=== PATIENT | male | born 1985 | race Caucasian/White ===

== ENCOUNTER 2017-03-24 15:02 | Emergency (ER) | payer OTHER ==
[~2017-03-24] VITALS: Ht 175.3 cm; Wt 85.0 kg
[2017-03-24 15:04] VITALS: BP 165/90; PULSE 95; RESP 16; TEMP 97.6; O2SAT 99
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
[2017-03-24] MEDS ORDERED: MAPA500T PO (17:29)
[2017-03-24] MEDS ORDERED: IBUP-232 PO (17:29)
== END 2017-03-24 18:22 | disposition home or self-care (01) ==
LOC: NEPC 15:02
DX: S06.0X9A Concussion with loss of consciousness of unspecified duration, initial encounter (principal); R07.81 Pleurodynia; V89.2XXA Person injured in unspecified motor-vehicle accident, traffic, initial encounter
CPT/HCPCS: 70450; 71101; 99284